=== PATIENT | female | born 1935 | race African-American/Black ===

== ENCOUNTER 2023-12-15 23:40 | Emergency (ER) | payer MEDICARE, OTHER ==
[~2023-12-15] VITALS: Ht 149.9 cm; Wt 39.5 kg
[2023-12-16 00:08] VITALS: TEMP 97.3
[2023-12-16 01:14] LABS: BASOPHILS % (AUTO) 0.5 % (0.0-2.0); EOSINOPHILS # (AUTO) 0.1 K/uL (0.0-0.7); EOSINOPHILS % (AUTO) 1.4 % (0.0-6.0); HEMATOCRIT 25 % (33-45); HEMOGLOBIN 8.1 g/dL (11.5-14.8); LYMPHOCYTES # (AUTO) 0.8 K/uL (0.8-4.8); LYMPHOCYTES % (AUTO) 10.9 % (20.0-44.0); MEAN CORPUSCULAR HEMOGLOBIN 31 PG (26.0-33.0); MEAN CORPUSCULAR HGB CONC 33 g/dl (31.0-36.0); MEAN CORPUSCULAR VOLUME 94 fL (82-100); MONOCYTES # (AUTO) 0.5 K/uL (0.1-1.30); MONOCYTES % (AUTO) 6.6 % (2.0-12.0); NEUTROPHILS # (AUTO) 5.6 K/uL (1.8-8.9); NEUTROPHILS % (AUTO) 80.6 % (43.0-81.0); PLATELET COUNT (AUTO) 241 K/uL (150-450); RED BLOOD CELL COUNT(AUTO) 2.65 MIL/uL (4.0-5.2); RED CELL DISTRIBUTION WIDTH 15.5 % (11.5-15.0)
[2023-12-16 01:22] LABS: CALCIUM, SERUM 8.7 mg/dL (8.5-10.1); CREATININE 0.7 mg/dL (0.6-1.3); POTASSIUM 3.5 mmol/L (3.5-5.1)
[2023-12-16 01:35] LABS: LACTIC ACID 1.2 mmol/L (0.4-2.0)
[2023-12-16 01:36] LABS: BILIRUBIN,TOTAL 0.2 mg/dL (0.2-1.0)
[2023-12-16 07:41] VITALS: BP 118/82; O2SAT 98
== END 2023-12-16 07:42 ==
LOC: EDBD 23:43 → ER 23:43
DX: S80.01XA Contusion of right knee, initial encounter (principal); F03.90 Unspecified dementia, unspecified severity, without behavioral disturbance, psychotic disturbance, mood disturbance, and anxiety; I10 Essential (primary) hypertension; E11.9 Type 2 diabetes mellitus without complications; F41.9 Anxiety disorder, unspecified; F20.9 Schizophrenia, unspecified; F32.A Depression, unspecified; W05.0XXA Fall from non-moving wheelchair, initial encounter; Y93.89 Activity, other specified; Y92.89 Other specified places as the place of occurrence of the external cause; Y99.8 Other external cause status
CPT/HCPCS: 36415; 73564-TC; 80053-TC; 83605-TC; 83880; 84484-TC; 85025-TC

== ENCOUNTER 2024-10-05 20:52 | Inpatient (IN) | payer MEDICARE, OTHER ==
[~2024-10-05] VITALS: Ht 154.9 cm; Wt 49.0 kg
[~2024-10-05 20:52] MED LIST: IVER3TAB2 PO
[2024-10-05 21:52] LABS: BASOPHILS # (AUTO) 0.1 K/uL (0.0-0.2); BASOPHILS % (AUTO) 1.1 % (0.0-2.0); EOSINOPHILS # (AUTO) 0.1 K/uL (0.0-0.7); EOSINOPHILS % (AUTO) 1.9 % (0.0-6.0); LYMPHOCYTES # (AUTO) 1.7 K/uL (0.8-4.8); MEAN CORPUSCULAR HEMOGLOBIN 30 PG (26.0-33.0); MEAN CORPUSCULAR HGB CONC 33 g/dl (31.0-36.0); MEAN CORPUSCULAR VOLUME 91 fL (82-100); MONOCYTES # (AUTO) 0.9 K/uL (0.1-1.30); MONOCYTES % (AUTO) 12.4 % (2.0-12.0); NEUTROPHILS # (AUTO) 4.6 K/uL (1.8-8.9); NEUTROPHILS % (AUTO) 61.6 % (43.0-81.0); PLATELET COUNT (AUTO) 355 K/uL (150-450); RED BLOOD CELL COUNT(AUTO) 2.08 MIL/uL (4.0-5.2); RED CELL DISTRIBUTION WIDTH 15.4 % (11.5-15.0); WHITE BLOOD COUNT (AUTO) 7.5 K/uL (4.3-11.0)
[2024-10-05 22:01] LABS: CALCIUM, SERUM 7.7 mg/dL (8.5-10.1); CARBON DIOXIDE 31 mmol/L (21-32); CHLORIDE 105 mmol/L (98-107); CREATININE 0.8 mg/dL (0.6-1.3); GLUCOSE 84 mg/dL (74-106); POTASSIUM 3.4 mmol/L (3.5-5.1); SODIUM SERUM 141 mmol/L (136-145); UREA NITROGEN, BLOOD 8 mg/dL (7-18)
[2024-10-05 22:03] LABS: HEMATOCRIT 19 % (33-45); HEMOGLOBIN 6.2 g/dL (11.5-14.8)
[2024-10-05 22:06] LABS: INR 1.13 (0.91-1.10); PARTIAL THROMBOPLASTIN TIME 25.6 SEC (24.3-34.3); PROTHROMBIN TIME 11.9 SECS (9.2-11.1)
[2024-10-05 22:08] LABS: ALANINE AMINOTRANSFERASE 11 U/L (12-78); ALBUMIN 1.7 g/dL (3.4-5.0); ALKALINE PHOSPHATASE 81 U/L (46-116); ASPARTATE AMINOTRANSFERASE 11 U/L (15-37); BILIRUBIN,DIRECT 0.1 mg/dL (0.0-0.2); BILIRUBIN,TOTAL 0.3 mg/dL (0.2-1.0); TOTAL PROTEIN, SERUM 6.4 g/dL (6.4-8.2)
[2024-10-05 22:26] LABS: BAND % (MANUAL) 1 % (0.0-5.0); EOSINOPHILS % (MANUAL) 2 % (0-4); LYMPHOCYTES % (MANUAL) 29 % (16-48); MONOCYTES % (MANUAL) 14 % (0-11.0); NEUTROPHILS % (MANUAL) 54 (42-76); PLATELET ESTIMATE ADEQUATE
[2024-10-05 22:27] LABS: ANISOCYTOSIS 1+; HYPOCHROMASIA 1+; STOMATOCYTES 1+
[2024-10-06] VITALS (8 sets, daily range): BP systolic 122–192; BP diastolic 61–83; TEMP 97.5–99; O2SAT 95–100
[2024-10-06] MEDS ORDERED: MAG HYDROX/AL HYDROX/SIMETH 30 ML UDC PO PRN
[2024-10-06] MEDS ORDERED: ONDANSETRON HCL/PF 4 MG/2 ML VIAL IVP PRN
[2024-10-06] MEDS ORDERED: Z GUARD REMEDY 4 OZ OINT TP PRN
[2024-10-06] MEDS ORDERED: MAGNESIUM HYDROXIDE 30 ML UDC PO PRN
[2024-10-06] MEDS: ACETAMINOPHEN 325 MG TABLET PO PRN (00:45)
[2024-10-06] MEDS: POTASSIUM CHLORIDE 20 MEQ TAB.PRT.SR PO ONE (00:46)
[2024-10-06] MEDS ORDERED: PANTOPRAZOLE 40 MG TABLET.DR PO SCH (07:30)
[2024-10-06] MEDS ORDERED: RISP0.5T5 PO (09:08)
[2024-10-06] MEDS ORDERED: CALC500T88 PO (09:08)
[2024-10-06] MEDS ORDERED: ATOR80TA PO (09:08)
[2024-10-06] MEDS ORDERED: ACET325T53 PO (09:08)
[2024-10-06] MEDS ORDERED: ACET-73 PO (09:08)
[2024-10-06] MEDS ORDERED: FAMO20TA8 PO (09:08)
[2024-10-06] MEDS ORDERED: DOCU100C36 PO (09:08)
[2024-10-06] MEDS ORDERED: ONDA4TAB5 PO (09:08)
[2024-10-06] MEDS ORDERED: FOLI0.8T3 PO (09:08)
[2024-10-06] MEDS ORDERED: GLUC1KIT IM (09:08)
[2024-10-06] MEDS ORDERED: AMLO-213 PO (09:08)
[2024-10-06] MEDS ORDERED: DEXT33GE7 PO (09:08)
[2024-10-06] MEDS ORDERED: CYAN100096 PO (09:08)
[2024-10-06] MEDS ORDERED: LOSA50TA39 PO (09:08)
[2024-10-06] MEDS ORDERED: FERR325T24 PO (09:08)
[2024-10-06] MEDS: PANTOPRAZOLE 40 MG VIAL IV SCH (10:21)
[2024-10-06 13:29] LABS: BASOPHILS # (AUTO) 0.1 K/uL (0.0-0.2); BASOPHILS % (AUTO) 0.7 % (0.0-2.0); EOSINOPHILS # (AUTO) 0.1 K/uL (0.0-0.7); EOSINOPHILS % (AUTO) 1.3 % (0.0-6.0); HEMATOCRIT 24 % (33-45); HEMOGLOBIN 8.1 g/dL (11.5-14.8); LYMPHOCYTES # (AUTO) 1.2 K/uL (0.8-4.8); LYMPHOCYTES % (AUTO) 14.1 % (20.0-44.0); MEAN CORPUSCULAR HEMOGLOBIN 30 PG (26.0-33.0); MEAN CORPUSCULAR HGB CONC 33 g/dl (31.0-36.0); MEAN CORPUSCULAR VOLUME 90 fL (82-100); MONOCYTES # (AUTO) 0.8 K/uL (0.1-1.30); MONOCYTES % (AUTO) 9.4 % (2.0-12.0); NEUTROPHILS # (AUTO) 6.2 K/uL (1.8-8.9); NEUTROPHILS % (AUTO) 74.5 % (43.0-81.0); PLATELET COUNT (AUTO) 332 K/uL (150-450); RED BLOOD CELL COUNT(AUTO) 2.72 MIL/uL (4.0-5.2); RED CELL DISTRIBUTION WIDTH 15.1 % (11.5-15.0); WHITE BLOOD COUNT (AUTO) 8.2 K/uL (4.3-11.0)
[2024-10-06] MEDS ORDERED: [UNRECOGNIZED DRUG - OTHER] PO PRN (15:00)
[2024-10-06] MEDS ORDERED: Medication Not On Formulary EA (Glucagon,Human Recombinant (Glucagon Emergency Kit) 1 MG IM PRN (15:00)
[2024-10-06] MEDS ORDERED: DEXTROSE PO PRN (15:00)
[2024-10-06] MEDS: risperiDONE 0.25 MG TABLET PO SCH (16:20)
[2024-10-06] MEDS: DOCUSATE SODIUM 100 MG CAPSULE PO SCH (16:20)
[2024-10-06 16:50] LABS: ALANINE AMINOTRANSFERASE 8 U/L (12-78); ALBUMIN 1.7 g/dL (3.4-5.0); ALKALINE PHOSPHATASE 92 U/L (46-116); ASPARTATE AMINOTRANSFERASE 9 U/L (15-37); BILIRUBIN,DIRECT 0.1 mg/dL (0.0-0.2); BILIRUBIN,TOTAL 0.3 mg/dL (0.2-1.0); CALCIUM, SERUM 7.8 mg/dL (8.5-10.1); CARBON DIOXIDE 28 mmol/L (21-32); CHLORIDE 103 mmol/L (98-107); CREATININE 0.7 mg/dL (0.6-1.3); GLUCOSE 151 mg/dL (74-106); MAGNESIUM 1.7 mg/dL (1.8-2.4); PHOSPHORUS 2.5 mg/dL (2.5-4.9); POTASSIUM 3.2 mmol/L (3.5-5.1); SODIUM SERUM 139 mmol/L (136-145); TOTAL PROTEIN, SERUM 6.7 g/dL (6.4-8.2); UREA NITROGEN, BLOOD 8 mg/dL (7-18)
[2024-10-06] MEDS: LOSARTAN POTASSIUM 50 MG TABLET PO SCH (17:39)
[2024-10-06] MEDS: ATORVASTATIN 40 MG TABLET PO SCH (21:56)
[2024-10-07 03:42] VITALS: BP 160/75; TEMP 98.1; O2SAT 98
[2024-10-07 07:18] LABS: BASOPHILS # (AUTO) 0.1 K/uL (0.0-0.2); BASOPHILS % (AUTO) 0.6 % (0.0-2.0); EOSINOPHILS # (AUTO) 0.2 K/uL (0.0-0.7); EOSINOPHILS % (AUTO) 1.9 % (0.0-6.0); HEMATOCRIT 26 % (33-45); HEMOGLOBIN 8.6 g/dL (11.5-14.8); LYMPHOCYTES # (AUTO) 1.6 K/uL (0.8-4.8); LYMPHOCYTES % (AUTO) 17.7 % (20.0-44.0); MEAN CORPUSCULAR HEMOGLOBIN 30 PG (26.0-33.0); MEAN CORPUSCULAR HGB CONC 33 g/dl (31.0-36.0); MEAN CORPUSCULAR VOLUME 90 fL (82-100); MONOCYTES % (AUTO) 11.5 % (2.0-12.0); NEUTROPHILS % (AUTO) 68.3 % (43.0-81.0); PLATELET COUNT (AUTO) 380 K/uL (150-450); RED BLOOD CELL COUNT(AUTO) 2.88 MIL/uL (4.0-5.2); RED CELL DISTRIBUTION WIDTH 15.2 % (11.5-15.0); WHITE BLOOD COUNT (AUTO) 8.8 K/uL (4.3-11.0)
[2024-10-07 07:21] LABS: APPEARANCE,URINE CLEAR (CLEAR); BILIRUBIN,URINE NEGATIVE (NEGATIVE); BLOOD, URINE 2+ Ery/uL (NEGATIVE); COLOR,URINE YELLOW (YELLOW); KETONES,URINE NEGATIVE (NEGATIVE); LEUKOCYTE ESTERASE ,URINE 3+ (NEGATIVE); NITRITE, URINE NEGATIVE (NEGATIVE); PH,URINE 7.5 (5.0-8.0); PROTEIN,URINE 1+ mg/dl (NEGATIVE); UGLUCOSE NEGATIVE (NEGATIVE)
[2024-10-07 07:35] LABS: CALCIUM, SERUM 8.1 mg/dL (8.5-10.1); CARBON DIOXIDE 28 mmol/L (21-32); CHLORIDE 104 mmol/L (98-107); GLUCOSE 119 mg/dL (74-106); POTASSIUM 3.2 mmol/L (3.5-5.1); SODIUM SERUM 137 mmol/L (136-145); UREA NITROGEN, BLOOD 9 mg/dL (7-18)
[2024-10-07 08:37] LABS: ADD URINE CULTURE YES; BACTERIA,URINE Moderate /HPF (None Seen); WBC,URINE 21-50 /HPF (0-3)
[2024-10-07 08:39] LABS: CALCIUM OXALATE CRYSTALS,UR Few /HPF (None Seen); RBC,URINE 0-2 /HPF (0-2); SQUAMOUS EPITHELIAL CELL,UR Rare /HPF (None Seen)
[2024-10-07] MEDS: CALCIUM CARBONATE (1250) 500 MG TABLET PO SCH (09:08)
[2024-10-07] MEDS: FERROUS SULFATE (325 MG) 325 MG/TAB TABLET PO SCH (09:08)
[2024-10-07] MEDS: FOLIC ACID 1 MG TABLET PO SCH (09:08)
[2024-10-07] MEDS: CYANOCOBALAMIN 500 MCG TABLET PO SCH (09:09)
[2024-10-07] MEDS: AMLODIPINE BESYLATE 10 MG TABLET PO SCH (09:09)
[2024-10-07] MEDS: PANTOPRAZOLE 40 MG TABLET.DR PO SCH (09:12)
[2024-10-07] MEDS: CEFTRIAXONE 1 G in IV D5W 50 ML IV SCH (10:30)
[2024-10-07] MEDS: POTASSIUM CHLORIDE 20 MEQ TAB.PRT.SR PO SCH (12:16)
[2024-10-07 16:00] VITALS: BP 142/68; TEMP 99.1; O2SAT 96
[2024-10-07 20:00] VITALS: BP 126/64; TEMP 99.2; O2SAT 96
[2024-10-08] VITALS: BP 121/64; TEMP 98.7; O2SAT 98
[2024-10-08 07:59] LABS: BASOPHILS % (AUTO) 0.6 % (0.0-2.0); EOSINOPHILS # (AUTO) 0.1 K/uL (0.0-0.7); HEMATOCRIT 28 % (33-45); HEMOGLOBIN 8.3 g/dL (11.5-14.8); LYMPHOCYTES # (AUTO) 1.1 K/uL (0.8-4.8); LYMPHOCYTES % (AUTO) 18.1 % (20.0-44.0); MEAN CORPUSCULAR HEMOGLOBIN 30 PG (26.0-33.0); MEAN CORPUSCULAR HGB CONC 30 g/dl (31.0-36.0); MEAN CORPUSCULAR VOLUME 100 fL (82-100); MONOCYTES # (AUTO) 0.7 K/uL (0.1-1.30); MONOCYTES % (AUTO) 10.6 % (2.0-12.0); NEUTROPHILS # (AUTO) 4.4 K/uL (1.8-8.9); NEUTROPHILS % (AUTO) 68.7 % (43.0-81.0); PLATELET COUNT (AUTO) 313 K/uL (150-450); RED BLOOD CELL COUNT(AUTO) 2.76 MIL/uL (4.0-5.2); RED CELL DISTRIBUTION WIDTH 16.3 % (11.5-15.0); WHITE BLOOD COUNT (AUTO) 6.3 K/uL (4.3-11.0)
[2024-10-08 08:00] VITALS: BP 170/82; TEMP 98.2; O2SAT 99
[2024-10-08 08:02] LABS: CALCIUM, SERUM 8.3 mg/dL (8.5-10.1); CARBON DIOXIDE 25 mmol/L (21-32); CHLORIDE 108 mmol/L (98-107); CREATININE 0.8 mg/dL (0.6-1.3); GLUCOSE 80 mg/dL (74-106); SODIUM SERUM 140 mmol/L (136-145); UREA NITROGEN, BLOOD 7 mg/dL (7-18)
[2024-10-08] MEDS ORDERED: POTASSIUM CHLORIDE 20 MEQ POWDER PACKET PO SCH ×2 (09:00)
[2024-10-08 09:59] VITALS: BP 170/82
[2024-10-08] MEDS ORDERED: CEFP200T14 PO (10:03)
[2024-10-08] MEDS ORDERED: PANT40TA2 PO (10:03)
== END 2024-10-08 16:07 | DRG 811 ==
LOC: ER 20:56 → TELE1 23:09 → MEDSG1 10-07 10:50 → UNDODISIN 10-08 11:23
PROVIDERS: ADMIT Nurse Practitioner Family
PROC: 30233N1 Transfusion of Nonautologous Red Blood Cells into Peripheral Vein, Percutaneous Approach (ICD-10-PCS; principal; 2024-10-05)
DX: D50.9 Iron deficiency anemia, unspecified (principal); E43 Unspecified severe protein-calorie malnutrition; M48.56XA Collapsed vertebra, not elsewhere classified, lumbar region, initial encounter for fracture; N39.0 Urinary tract infection, site not specified; F01.54 Vascular dementia, unspecified severity, with anxiety; F01.518 Vascular dementia, unspecified severity, with other behavioral disturbance; F01.52 Vascular dementia, unspecified severity, with psychotic disturbance; E88.09 Other disorders of plasma-protein metabolism, not elsewhere classified; I10 Essential (primary) hypertension; I25.10 Atherosclerotic heart disease of native coronary artery without angina pectoris; E87.6 Hypokalemia; F41.9 Anxiety disorder, unspecified; Z86.73 Personal history of transient ischemic attack (TIA), and cerebral infarction without residual deficits; M19.90 Unspecified osteoarthritis, unspecified site; Z79.899 Other long term (current) drug therapy; Z86.718 Personal history of other venous thrombosis and embolism; E11.9 Type 2 diabetes mellitus without complications
CPT/HCPCS: 36415; 71045-TC; 80048-TC; 80076-TC; 81001; 83690-TC; 83735-TC; 84100-TC; 84484-TC; 85025-TC; 85730-TC; 86850-TC; 87086-TC; A4223; G0378; J0696; J2470; J7050; J7060; P9016

== ENCOUNTER 2025-03-30 18:13 | Inpatient (IN) | payer MEDICARE, OTHER ==
[~2025-03-30] VITALS: Ht 152.4 cm; Wt 49.0 kg
[~2025-03-30 18:13] MED LIST changes: +ACET-73 PO; +ACET325T53 PO; +AMLO-213 PO; +ATOR80TA PO; +CALC500T88 PO; +CEFP200T14 PO; +CYAN100096 PO; +DEXT33GE7 PO; +DOCU100C36 PO; +FAMO20TA8 PO; +FERR325T24 PO; +FOLI0.8T3 PO; +GLUC1KIT IM; -IVER3TAB2 PO; +LOSA50TA39 PO; +ONDA4TAB5 PO; +PANT40TA2 PO; +RISP0.5T5 PO
[2025-03-30] MEDS ORDERED: CRAN300T PO (18:50)
[2025-03-30] MEDS ORDERED: ASCO500T10 PO (18:50)
[2025-03-30 19:01] LABS: BASOPHILS # (AUTO) 0.1 K/uL (0.0-0.2); BASOPHILS % (AUTO) 0.8 % (0.0-2.0); EOSINOPHILS # (AUTO) 0.3 K/uL (0.0-0.7); EOSINOPHILS % (AUTO) 3.4 % (0.0-6.0); HEMATOCRIT 27 % (33-45); HEMOGLOBIN 8.8 g/dL (11.5-14.8); LYMPHOCYTES # (AUTO) 2.7 K/uL (0.8-4.8); MEAN CORPUSCULAR HEMOGLOBIN 31 PG (26.0-33.0); MEAN CORPUSCULAR HGB CONC 33 g/dl (31.0-36.0); MEAN CORPUSCULAR VOLUME 94 fL (82-100); MONOCYTES # (AUTO) 0.8 K/uL (0.1-1.30); MONOCYTES % (AUTO) 8.7 % (2.0-12.0); NEUTROPHILS # (AUTO) 5.7 K/uL (1.8-8.9); NEUTROPHILS % (AUTO) 59.1 % (43.0-81.0); PLATELET COUNT (AUTO) 356 K/uL (150-450); RED BLOOD CELL COUNT(AUTO) 2.87 MIL/uL (4.0-5.2); RED CELL DISTRIBUTION WIDTH 14.9 % (11.5-15.0); WHITE BLOOD COUNT (AUTO) 9.6 K/uL (4.3-11.0)
[2025-03-30 19:13] LABS: CALCIUM, SERUM 9.1 mg/dL (8.5-10.1); CARBON DIOXIDE 28 mmol/L (21-32); CHLORIDE 105 mmol/L (98-107); CREATININE 0.9 mg/dL (0.6-1.3); GLUCOSE 82 mg/dL (74-106); POTASSIUM 4.1 mmol/L (3.5-5.1); SODIUM SERUM 140 mmol/L (136-145); UREA NITROGEN, BLOOD 18 mg/dL (7-18)
[2025-03-30 19:19] LABS: ALANINE AMINOTRANSFERASE 15 U/L (12-78); ALBUMIN 2.3 g/dL (3.4-5.0); ALCOHOL, BLOOD < 3 mg/dL (0-10); ALKALINE PHOSPHATASE 130 U/L (46-116); ASPARTATE AMINOTRANSFERASE 20 U/L (15-37); BILIRUBIN,DIRECT 0.1 mg/dL (0.0-0.2); BILIRUBIN,TOTAL 0.2 mg/dL (0.2-1.0); TOTAL PROTEIN, SERUM 7.4 g/dL (6.4-8.2)
[2025-03-30 19:20] LABS: ACETAMINOPHEN <10 ug/ml (10-30); SALICYLATE 1.4 mg/dL (2.8-20.0)
[2025-03-30] MEDS: HALOPERIDOL LACTATE INJ 5 MG/ML VIAL IM ONE (19:30)
[2025-03-30] MEDS ORDERED: HALOPERIDOL LACTATE INJ 5 MG/ML VIAL ONE (19:39)
[2025-03-30] MEDS ORDERED: LORAZEPAM INJ 2 MG/ML VIAL ONE (20:27)
[2025-03-30] MEDS: LORAZEPAM INJ 2 MG/ML VIAL IM ONE (20:30)
[2025-03-30 20:51] LABS: AMPHETAMINE, URINE NEGATIVE (NEGATIVE); BARBITURATE, URINE NEGATIVE (NEGATIVE); BENZODIAZEPINE, URINE NEGATIVE (NEGATIVE); CANNABINOID, URINE NEGATIVE (NEGATIVE); COCCAINE, URINE NEGATIVE (NEGATIVE); OPIATE, URINE NEGATIVE (NEGATIVE); PHENCYCLIDINE SCREEN,URINE NEGATIVE (NEGATIVE)
[2025-03-30 21:07] LABS: APPEARANCE,URINE CLOUDY (CLEAR); BILIRUBIN,URINE NEGATIVE (NEGATIVE); BLOOD, URINE 2+ Ery/uL (NEGATIVE); KETONES,URINE TRACE mg/dL (NEGATIVE); LEUKOCYTE ESTERASE ,URINE 1+ (NEGATIVE); NITRITE, URINE NEGATIVE (NEGATIVE); PROTEIN,URINE 2+ mg/dl (NEGATIVE); UGLUCOSE NEGATIVE (NEGATIVE)
[2025-03-30 21:09] LABS: COLOR,URINE AMBER (YELLOW)
[2025-03-30 21:22] LABS: ADD URINE CULTURE YES; BACTERIA,URINE Moderate /HPF (None Seen); RBC,URINE 51-80 /HPF (0-2); WBC,URINE 21-50 /HPF (0-3)
[2025-03-31] MEDS ORDERED: CEPHALEXIN MONOHYDRATE 500 MG CAPSULE PO ONE (00:28)
[2025-03-31] MEDS: CEPHALEXIN MONOHYDRATE 500 MG CAPSULE PO ONE (00:40)
[2025-03-31] MEDS ORDERED: MAGNESIUM HYDROXIDE 30 ML UDC PO PRN (01:00)
[2025-03-31] MEDS ORDERED: TEMAZEPAM 7.5 MG CAPSULE PO PRN (01:00)
[2025-03-31] MEDS: BLOOD SUGAR DIAGNOSTIC 1 EACH STRIP IN ONE (01:32)
[2025-03-31 01:48] VITALS: BP 107/52; TEMP 98.8; O2SAT 97
[2025-03-31 08:00] VITALS: BP 116/54; TEMP 98.7; O2SAT 100
[2025-03-31] MEDS ORDERED: ACETAMINOPHEN ES 500 MG TABLET PO PRN (11:30)
[2025-03-31] MEDS ORDERED: ACETAMINOPHEN 325 MG TABLET PO PRN (11:30)
[2025-03-31] MEDS ORDERED: ONDANSETRON 4 MG TAB.RAPDIS PO PRN (12:00)
[2025-03-31] MEDS: ACETAMINOPHEN 325 MG TABLET PO PRN (12:15)
[2025-03-31] MEDS: LORAZEPAM 0.5 MG TABLET PO PRN (12:21)
[2025-03-31] MEDS: risperiDONE 1 MG TABLET PO SCH (12:55)
[2025-03-31] MEDS: CEPHALEXIN MONOHYDRATE 500 MG CAPSULE PO SCH (12:55)
[2025-03-31 16:00] VITALS: BP 109/84; TEMP 98.2; O2SAT 100
[2025-03-31] MEDS: DOCUSATE SODIUM 100 MG CAPSULE PO SCH (16:19)
[2025-03-31 20:27] VITALS: BP 108/64; TEMP 98.4; O2SAT 100
[2025-03-31] MEDS: ATORVASTATIN 40 MG TABLET PO SCH (21:20)
[2025-04-01 08:00] VITALS: BP 136/90; TEMP 97.9; O2SAT 98
[2025-04-01 08:11] LABS: CREATININE 1.1 mg/dL (0.6-1.3)
[2025-04-01 08:18] LABS: ALANINE AMINOTRANSFERASE 18 U/L (12-78); ALBUMIN 2.2 g/dL (3.4-5.0); ALKALINE PHOSPHATASE 128 U/L (46-116); ASPARTATE AMINOTRANSFERASE 21 U/L (15-37); BILIRUBIN,TOTAL 0.2 mg/dL (0.2-1.0); CALCIUM, SERUM 8.8 mg/dL (8.5-10.1); CARBON DIOXIDE 28 mmol/L (21-32); CHLORIDE 104 mmol/L (98-107); CREATININE 1.1 mg/dL (0.6-1.3); GLUCOSE 87 mg/dL (74-106); POTASSIUM 4.1 mmol/L (3.5-5.1); SODIUM SERUM 138 mmol/L (136-145); TOTAL PROTEIN, SERUM 7.1 g/dL (6.4-8.2); UREA NITROGEN, BLOOD 20 mg/dL (7-18)
[2025-04-01] MEDS: AMLODIPINE BESYLATE 10 MG TABLET PO SCH (08:43)
[2025-04-01] MEDS: LOSARTAN POTASSIUM 50 MG TABLET PO SCH (08:43)
[2025-04-01] MEDS: FERROUS SULFATE (325 MG) 325 MG/TAB TABLET PO SCH (08:43)
[2025-04-01] MEDS: CALCIUM CARBONATE (1250) 500 MG TABLET PO SCH (08:43)
[2025-04-01] MEDS: FAMOTIDINE (20 MG) 20 MG TABLET PO SCH (08:44)
[2025-04-01] MEDS: ASCORBIC ACID 500 MG TABLET PO SCH (08:44)
[2025-04-01] MEDS ORDERED: Medication Not On Formulary EA (Cranberry Extract (Cranberry) 450 MG) PO SCH (09:00)
[2025-04-01] MEDS: OLANZAPINE 10 MG VIAL IM ONE (11:08)
[2025-04-01 16:00] VITALS: BP 102/71; TEMP 98; O2SAT 96
[2025-04-01 21:15] VITALS: BP 102/70; TEMP 98.1; O2SAT 98
[2025-04-02 08:00] VITALS: BP 100/67; TEMP 97.6; O2SAT 96
[2025-04-02] MEDS: risperiDONE 1 MG TABLET PO SCH (08:16)
[2025-04-02 16:00] VITALS: BP 104/75; TEMP 97.8; O2SAT 97
[2025-04-02 22:46] LABS: THYROID STIMULATING HORMONE 1.211 uIU/mL (0.358-3.74)
[2025-04-03 08:00] VITALS: BP 106/67; TEMP 97.9; O2SAT 96
[2025-04-03] MEDS ORDERED: DEXTROSE 50%-WATER 50 ML DISP.SYRIN IV PRN (10:00)
[2025-04-03] MEDS: BLOOD SUGAR DIAGNOSTIC 1 EACH STRIP VI SCH (11:41)
[2025-04-03] MEDS: INSULIN REGULAR, HUMAN 100 UNIT/ML 3 ML VIAL SQ PRN (11:41)
[2025-04-03] MEDS ORDERED: Z GUARD REMEDY 4 OZ OINT TP PRN (13:00)
[2025-04-03 16:53] VITALS: BP 121/75; TEMP 98.1; O2SAT 92
[2025-04-03] MEDS: *INSULIN REGULAR(HUMULIN R)HUM 100 UNIT/ML VIAL SQ PRN (16:55)
[2025-04-03 20:27] VITALS: BP 105/56; TEMP 98; O2SAT 96
[2025-04-03] MEDS: Z GUARD REMEDY 4 OZ OINT TP SCH (22:19)
[2025-04-04 08:00] VITALS: BP 100/52; TEMP 98.7; O2SAT 95
[2025-04-04] MEDS: LORAZEPAM 0.5 MG TABLET PO PRN (10:57)
[2025-04-04 16:00] VITALS: BP 100/56; TEMP 98.7; O2SAT 99
[2025-04-04 20:10] VITALS: BP 123/68; TEMP 98; O2SAT 99
[2025-04-05 08:00] VITALS: BP 133/77; TEMP 97.7; O2SAT 99
[2025-04-05] MEDS: DIVALPROEX SODIUM 125 MG TABLET.DR PO SCH (13:01)
[2025-04-05 16:00] VITALS: BP 128/62; TEMP 97.9; O2SAT 98
[2025-04-05 20:38] VITALS: BP 96/52; TEMP 97.9; O2SAT 99
[2025-04-06 08:00] VITALS: BP 114/59; TEMP 98.1; O2SAT 97
[2025-04-06 08:07] LABS: ALBUMIN 1.9 g/dL (3.4-5.0); BILIRUBIN,TOTAL 0.1 mg/dL (0.2-1.0); CALCIUM, SERUM 8.5 mg/dL (8.5-10.1); CREATININE 0.9 mg/dL (0.6-1.3); POTASSIUM 4.9 mmol/L (3.5-5.1); TOTAL PROTEIN, SERUM 6.6 g/dL (6.4-8.2)
[2025-04-06] MEDS: DIVALPROEX SODIUM 125 MG CAP.SPRINK PO ONE (15:07)
[2025-04-06 16:00] VITALS: BP 127/59; TEMP 97.9; O2SAT 97
[2025-04-06] MEDS: DIVALPROEX SODIUM 125 MG CAP.SPRINK PO SCH (16:25)
[2025-04-06 20:08] VITALS: BP 115/69; TEMP 97.9; O2SAT 98
[2025-04-06] MEDS: MAG HYDROX/AL HYDROX/SIMETH 30 ML UDC PO PRN (20:09)
[2025-04-06] MEDS: TEMAZEPAM 7.5 MG CAPSULE PO PRN (21:13)
[2025-04-07 08:00] VITALS: BP 126/70; TEMP 98; O2SAT 98
[2025-04-07] MEDS ORDERED: RISPERIDONE 0.25 MG TAB.RAPDIS PO SCH (09:30)
[2025-04-07] MEDS: VALPROIC ACID 250 MG/5 ML UDC PO SCH (09:58)
[2025-04-07] MEDS: risperiDONE-M 0.5 MG TAB.RAPDIS PO SCH (12:53)
[2025-04-07 13:34] LABS: ALBUMIN 2.1 g/dL (3.4-5.0); BILIRUBIN,TOTAL 0.1 mg/dL (0.2-1.0); CALCIUM, SERUM 9.2 mg/dL (8.5-10.1); CREATININE 0.9 mg/dL (0.6-1.3); POTASSIUM 4.6 mmol/L (3.5-5.1); TOTAL PROTEIN, SERUM 7.1 g/dL (6.4-8.2)
[2025-04-07 13:37] LABS: BASOPHILS # (AUTO) 0.1 K/uL (0.0-0.2); BASOPHILS % (AUTO) 0.8 % (0.0-2.0); EOSINOPHILS # (AUTO) 0.2 K/uL (0.0-0.7); HEMATOCRIT 24 % (33-45); HEMOGLOBIN 7.9 g/dL (11.5-14.8); LYMPHOCYTES # (AUTO) 1.7 K/uL (0.8-4.8); LYMPHOCYTES % (AUTO) 18.9 % (20.0-44.0); MEAN CORPUSCULAR HEMOGLOBIN 31 PG (26.0-33.0); MEAN CORPUSCULAR HGB CONC 33 g/dl (31.0-36.0); MEAN CORPUSCULAR VOLUME 94 fL (82-100); MONOCYTES # (AUTO) 0.6 K/uL (0.1-1.30); MONOCYTES % (AUTO) 6.8 % (2.0-12.0); NEUTROPHILS # (AUTO) 6.6 K/uL (1.8-8.9); NEUTROPHILS % (AUTO) 71.5 % (43.0-81.0); PLATELET COUNT (AUTO) 309 K/uL (150-450); RED BLOOD CELL COUNT(AUTO) 2.53 MIL/uL (4.0-5.2); RED CELL DISTRIBUTION WIDTH 14.8 % (11.5-15.0); WHITE BLOOD COUNT (AUTO) 9.2 K/uL (4.3-11.0)
[2025-04-07 16:00] VITALS: BP 119/69; TEMP 97.4; O2SAT 97
[2025-04-07 20:00] VITALS: BP 123/59; TEMP 97.5; O2SAT 96
[2025-04-08 08:15] LABS: BASOPHILS # (AUTO) 0.1 K/uL (0.0-0.2); BASOPHILS % (AUTO) 0.6 % (0.0-2.0); EOSINOPHILS # (AUTO) 0.2 K/uL (0.0-0.7); EOSINOPHILS % (AUTO) 2.3 % (0.0-6.0); HEMATOCRIT 28 % (33-45); HEMOGLOBIN 8.7 g/dL (11.5-14.8); LYMPHOCYTES # (AUTO) 1.6 K/uL (0.8-4.8); LYMPHOCYTES % (AUTO) 15.5 % (20.0-44.0); MEAN CORPUSCULAR HEMOGLOBIN 31 PG (26.0-33.0); MEAN CORPUSCULAR HGB CONC 31 g/dl (31.0-36.0); MEAN CORPUSCULAR VOLUME 101 fL (82-100); MONOCYTES # (AUTO) 0.7 K/uL (0.1-1.30); MONOCYTES % (AUTO) 6.8 % (2.0-12.0); NEUTROPHILS % (AUTO) 74.8 % (43.0-81.0); PLATELET COUNT (AUTO) 287 K/uL (150-450); RED BLOOD CELL COUNT(AUTO) 2.81 MIL/uL (4.0-5.2); WHITE BLOOD COUNT (AUTO) 10.7 K/uL (4.3-11.0)
[2025-04-08 09:05] VITALS: BP 124/55; TEMP 97.5; O2SAT 100
[2025-04-08 16:39] VITALS: BP 110/48; TEMP 97.8; O2SAT 100
[2025-04-08 18:29] LABS: APPEARANCE,URINE SLIGHTLY CLOUDY (CLEAR); BILIRUBIN,URINE NEGATIVE (NEGATIVE); BLOOD, URINE 3+ Ery/uL (NEGATIVE); COLOR,URINE YELLOW (YELLOW); KETONES,URINE NEGATIVE (NEGATIVE); LEUKOCYTE ESTERASE ,URINE 1+ (NEGATIVE); NITRITE, URINE NEGATIVE (NEGATIVE); PROTEIN,URINE 1+ mg/dl (NEGATIVE); UGLUCOSE NEGATIVE (NEGATIVE); UROBILINOGEN,URINE 0.2 EU/dL (0.2)
[2025-04-08 19:16] LABS: ADD URINE CULTURE YES; BACTERIA,URINE 2+ /HPF (None Seen); MUCUS,URINE Few /LPF (None Seen); RBC,URINE 51-80 /HPF (0-2); SQUAMOUS EPITHELIAL CELL,UR 0-2 /HPF (None Seen)
[2025-04-08 20:19] VITALS: BP 105/69; TEMP 97.9; O2SAT 98
[2025-04-09 07:08] LABS: BASOPHILS % (AUTO) 0.5 % (0.0-2.0); EOSINOPHILS # (AUTO) 0.2 K/uL (0.0-0.7); EOSINOPHILS % (AUTO) 2.6 % (0.0-6.0); HEMATOCRIT 24 % (33-45); HEMOGLOBIN 7.8 g/dL (11.5-14.8); LYMPHOCYTES # (AUTO) 1.7 K/uL (0.8-4.8); LYMPHOCYTES % (AUTO) 19.6 % (20.0-44.0); MEAN CORPUSCULAR HEMOGLOBIN 31 PG (26.0-33.0); MEAN CORPUSCULAR HGB CONC 32 g/dl (31.0-36.0); MEAN CORPUSCULAR VOLUME 95 fL (82-100); MONOCYTES # (AUTO) 0.7 K/uL (0.1-1.30); NEUTROPHILS % (AUTO) 69.3 % (43.0-81.0); PLATELET COUNT (AUTO) 306 K/uL (150-450); RED BLOOD CELL COUNT(AUTO) 2.54 MIL/uL (4.0-5.2); RED CELL DISTRIBUTION WIDTH 15.6 % (11.5-15.0); WHITE BLOOD COUNT (AUTO) 8.7 K/uL (4.3-11.0)
[2025-04-09] MEDS: FERROUS SULFATE (325 MG) 325 MG/TAB TABLET PO SCH (16:53)
[2025-04-09] MEDS: GLUCERNA SHAKE 237 ML CAN PO SCH (17:00)
[2025-04-09 20:52] VITALS: BP 110/54; TEMP 98; O2SAT 97
[2025-04-10 06:43] LABS: BASOPHILS % (AUTO) 0.5 % (0.0-2.0); EOSINOPHILS # (AUTO) 0.2 K/uL (0.0-0.7); EOSINOPHILS % (AUTO) 2.6 % (0.0-6.0); HEMATOCRIT 22 % (33-45); HEMOGLOBIN 7.4 g/dL (11.5-14.8); LYMPHOCYTES % (AUTO) 21.8 % (20.0-44.0); MEAN CORPUSCULAR HEMOGLOBIN 31 PG (26.0-33.0); MEAN CORPUSCULAR HGB CONC 34 g/dl (31.0-36.0); MEAN CORPUSCULAR VOLUME 93 fL (82-100); MONOCYTES # (AUTO) 0.7 K/uL (0.1-1.30); MONOCYTES % (AUTO) 7.8 % (2.0-12.0); NEUTROPHILS # (AUTO) 6.1 K/uL (1.8-8.9); NEUTROPHILS % (AUTO) 67.3 % (43.0-81.0); PLATELET COUNT (AUTO) 314 K/uL (150-450); RED BLOOD CELL COUNT(AUTO) 2.35 MIL/uL (4.0-5.2); RED CELL DISTRIBUTION WIDTH 15.1 % (11.5-15.0)
[2025-04-10 08:00] VITALS: BP 104/68; TEMP 98.2; O2SAT 96
[2025-04-10 16:00] VITALS: BP 100/55; TEMP 98.8; O2SAT 99
[2025-04-10] MEDS: DIVALPROEX SODIUM 125 MG CAP.SPRINK PO SCH (16:52)
[2025-04-10 21:45] VITALS: BP 101/51; TEMP 98.7; O2SAT 99
[2025-04-11 08:00] VITALS: BP 116/56; TEMP 97.8; O2SAT 98
[2025-04-11 15:55] VITALS: BP 105/53; TEMP 98.6
[2025-04-11] MEDS: MEGESTROL ACETATE 40 MG TABLET PO SCH (16:54)
[2025-04-11 20:37] VITALS: BP 131/62; TEMP 98.3; O2SAT 98
[2025-04-12 08:00] VITALS: BP 108/90; TEMP 98; O2SAT 96
[2025-04-12 16:04] VITALS: BP 92/52; TEMP 98; O2SAT 98
[2025-04-12 21:03] VITALS: BP 105/48; TEMP 97.9; O2SAT 96
[2025-04-13 07:44] LABS: BASOPHILS # (AUTO) 0.1 K/uL (0.0-0.2); BASOPHILS % (AUTO) 0.5 % (0.0-2.0); EOSINOPHILS # (AUTO) 0.2 K/uL (0.0-0.7); EOSINOPHILS % (AUTO) 2.1 % (0.0-6.0); HEMATOCRIT 22 % (33-45); HEMOGLOBIN 7.2 g/dL (11.5-14.8); LYMPHOCYTES # (AUTO) 1.6 K/uL (0.8-4.8); LYMPHOCYTES % (AUTO) 15.8 % (20.0-44.0); MEAN CORPUSCULAR HEMOGLOBIN 31 PG (26.0-33.0); MEAN CORPUSCULAR HGB CONC 33 g/dl (31.0-36.0); MEAN CORPUSCULAR VOLUME 94 fL (82-100); MONOCYTES # (AUTO) 0.8 K/uL (0.1-1.30); MONOCYTES % (AUTO) 7.9 % (2.0-12.0); NEUTROPHILS # (AUTO) 7.4 K/uL (1.8-8.9); NEUTROPHILS % (AUTO) 73.7 % (43.0-81.0); PLATELET COUNT (AUTO) 314 K/uL (150-450); RED CELL DISTRIBUTION WIDTH 14.8 % (11.5-15.0)
[2025-04-13 08:00] VITALS: BP 114/63; TEMP 98.7; O2SAT 98
[2025-04-13 15:52] VITALS: BP 93/50; TEMP 98.7; O2SAT 100
[2025-04-13 19:59] LABS: APPEARANCE,URINE TURBID (CLEAR); BILIRUBIN,URINE NEGATIVE (NEGATIVE); BLOOD, URINE 3+ Ery/uL (NEGATIVE); COLOR,URINE YELLOW (YELLOW); KETONES,URINE TRACE mg/dL (NEGATIVE); LEUKOCYTE ESTERASE ,URINE 1+ (NEGATIVE); NITRITE, URINE NEGATIVE (NEGATIVE); PROTEIN,URINE 2+ mg/dl (NEGATIVE); UGLUCOSE NEGATIVE (NEGATIVE)
[2025-04-13 20:25] LABS: RBC,URINE TOO NUMEROUS TO COUN /HPF (0-2)
[2025-04-13 20:26] LABS: ADD URINE CULTURE YES; BACTERIA,URINE Moderate /HPF (None Seen)
[2025-04-13 20:50] VITALS: BP 113/52; TEMP 98.5; O2SAT 98
[2025-04-13 21:06] VITALS: BP 113/52; TEMP 98.5; O2SAT 100
[2025-04-14 07:44] LABS: BASOPHILS # (AUTO) 0.1 K/uL (0.0-0.2); BASOPHILS % (AUTO) 0.5 % (0.0-2.0); EOSINOPHILS # (AUTO) 0.2 K/uL (0.0-0.7); EOSINOPHILS % (AUTO) 2.1 % (0.0-6.0); HEMATOCRIT 25 % (33-45); HEMOGLOBIN 7.9 g/dL (11.5-14.8); LYMPHOCYTES # (AUTO) 1.6 K/uL (0.8-4.8); LYMPHOCYTES % (AUTO) 14.7 % (20.0-44.0); MEAN CORPUSCULAR HEMOGLOBIN 31 PG (26.0-33.0); MEAN CORPUSCULAR HGB CONC 32 g/dl (31.0-36.0); MEAN CORPUSCULAR VOLUME 96 fL (82-100); MONOCYTES # (AUTO) 0.6 K/uL (0.1-1.30); MONOCYTES % (AUTO) 5.4 % (2.0-12.0); NEUTROPHILS # (AUTO) 8.2 K/uL (1.8-8.9); NEUTROPHILS % (AUTO) 77.3 % (43.0-81.0); PLATELET COUNT (AUTO) 329 K/uL (150-450); RED BLOOD CELL COUNT(AUTO) 2.58 MIL/uL (4.0-5.2); RED CELL DISTRIBUTION WIDTH 15.3 % (11.5-15.0); WHITE BLOOD COUNT (AUTO) 10.6 K/uL (4.3-11.0)
[2025-04-14 08:00] VITALS: BP 126/69; TEMP 98; O2SAT 98
[2025-04-14 09:55] VITALS: BP 126/69
== END 2025-04-14 13:10 | DRG 885 ==
LOC: ER 18:18 → GPS 23:27
PROVIDERS: ADMIT Nurse Practitioner Psychiatric/Mental Health; ATTEND Internal Medicine
DX: F20.9 Schizophrenia, unspecified (principal); R45.1 Restlessness and agitation; F03.92 Unspecified dementia, unspecified severity, with psychotic disturbance; F03.918 Unspecified dementia, unspecified severity, with other behavioral disturbance; F03.911 Unspecified dementia, unspecified severity, with agitation; N39.0 Urinary tract infection, site not specified; F03.94 Unspecified dementia, unspecified severity, with anxiety; F03.93 Unspecified dementia, unspecified severity, with mood disturbance; E44.0 Moderate protein-calorie malnutrition; G93.49 Other encephalopathy; F29 Unspecified psychosis not due to a substance or known physiological condition; E11.9 Type 2 diabetes mellitus without complications; I10 Essential (primary) hypertension; Z79.899 Other long term (current) drug therapy; Z86.73 Personal history of transient ischemic attack (TIA), and cerebral infarction without residual deficits; I25.10 Atherosclerotic heart disease of native coronary artery without angina pectoris; Z91.148 Patient's other noncompliance with medication regimen for other reason; M19.90 Unspecified osteoarthritis, unspecified site; B96.89 Other specified bacterial agents as the cause of diseases classified elsewhere; D64.9 Anemia, unspecified; F41.9 Anxiety disorder, unspecified; E88.09 Other disorders of plasma-protein metabolism, not elsewhere classified; Z87.81 Personal history of (healed) traumatic fracture; Z73.6 Limitation of activities due to disability
CPT/HCPCS: 36415; 71045-TC; 80048-TC; 80053-TC; 80061-TC; 80076-TC; 80164-TC; 81001; 82565-TC; 82962-TC; 84443-TC; 85025-TC; 87081-TC; 87086-TC; 97110-TC; 97530-TC; 98960; G0480; J1630; J1815; J2060; J3490

== ENCOUNTER 2025-04-22 21:41 | Inpatient (IN) | payer MEDICARE ==
[~2025-04-22] VITALS: Ht 154.9 cm; Wt 41.9 kg
[~2025-04-22 21:41] MED LIST changes: +ASCO500T10 PO; -CEFP200T14 PO; +CRAN300T PO; -CYAN100096 PO; -DEXT33GE7 PO; -FOLI0.8T3 PO; -GLUC1KIT IM; -PANT40TA2 PO; -RISP0.5T5 PO
[2025-04-22 22:43] LABS: CALCIUM, SERUM 8.3 mg/dL (8.5-10.1)
[2025-04-22 22:46] LABS: BASOPHILS # (AUTO) 0.1 K/uL (0.0-0.2); BASOPHILS % (AUTO) 0.8 % (0.0-2.0); EOSINOPHILS # (AUTO) 0.3 K/uL (0.0-0.7); EOSINOPHILS % (AUTO) 2.7 % (0.0-6.0); LYMPHOCYTES # (AUTO) 2.2 K/uL (0.8-4.8); MEAN CORPUSCULAR HEMOGLOBIN 30 PG (26.0-33.0); MEAN CORPUSCULAR HGB CONC 33 g/dl (31.0-36.0); MEAN CORPUSCULAR VOLUME 93 fL (82-100); MONOCYTES # (AUTO) 0.7 K/uL (0.1-1.30); NEUTROPHILS # (AUTO) 5.9 K/uL (1.8-8.9); NEUTROPHILS % (AUTO) 64.5 % (43.0-81.0); PLATELET COUNT (AUTO) 343 K/uL (150-450); RED BLOOD CELL COUNT(AUTO) 2.05 MIL/uL (4.0-5.2); RED CELL DISTRIBUTION WIDTH 15.1 % (11.5-15.0); WHITE BLOOD COUNT (AUTO) 9.2 K/uL (4.3-11.0)
[2025-04-22 22:48] LABS: TOTAL PROTEIN, SERUM 6.7 g/dL (6.4-8.2)
[2025-04-22 22:50] LABS: HEMATOCRIT 19 % (33-45); HEMOGLOBIN 6.2 g/dL (11.5-14.8)
[2025-04-22 22:51] LABS: INR 1.02 (0.91-1.10); PARTIAL THROMBOPLASTIN TIME 25.2 SEC (24.3-34.3); PROTHROMBIN TIME 10.8 SECS (9.2-11.1)
[2025-04-22 23:08] LABS: BILIRUBIN,TOTAL 0.1 mg/dL (0.2-1.0)
[2025-04-23 00:54] LABS: IRON, SERUM 27 ug/dl (50-175); TOTAL IRON BINDING CAPACITY 152 ug/dl (250-450)
[2025-04-23] MEDS ORDERED: ACETAMINOPHEN 325 MG TABLET PO PRN (01:00)
[2025-04-23] MEDS ORDERED: MAG HYDROX/AL HYDROX/SIMETH 30 ML UDC PO PRN (01:00)
[2025-04-23] MEDS ORDERED: ONDANSETRON HCL/PF 4 MG/2 ML VIAL IVP PRN (01:00)
[2025-04-23] MEDS ORDERED: Z GUARD REMEDY 4 OZ OINT TP PRN (01:00)
[2025-04-23 01:09] LABS: FERRITIN 288 ng/mL (8-388)
[2025-04-23 01:15] LABS: EOSINOPHILS % (MANUAL) 5 % (0-4); LYMPHOCYTES % (MANUAL) 24 % (16-48); MONOCYTES % (MANUAL) 6 % (0-11.0); NEUTROPHILS % (MANUAL) 65 (42-76); PLATELET ESTIMATE ADEQUATE
[2025-04-23 01:16] LABS: ANISOCYTOSIS 1+
[2025-04-23 03:40] VITALS: BP 129/69; TEMP 98.6; O2SAT 99
[2025-04-23 04:40] VITALS: BP 129/69; TEMP 98.6
[2025-04-23 05:35] VITALS: BP 133/70; TEMP 98.5; O2SAT 99
[2025-04-23 06:53] LABS: BASOPHILS # (AUTO) 0.1 K/uL (0.0-0.2); BASOPHILS % (AUTO) 0.7 % (0.0-2.0); EOSINOPHILS # (AUTO) 0.2 K/uL (0.0-0.7); EOSINOPHILS % (AUTO) 2.1 % (0.0-6.0); HEMATOCRIT 25 % (33-45); HEMOGLOBIN 7.9 g/dL (11.5-14.8); LYMPHOCYTES # (AUTO) 1.6 K/uL (0.8-4.8); LYMPHOCYTES % (AUTO) 13.5 % (20.0-44.0); MEAN CORPUSCULAR HEMOGLOBIN 30 PG (26.0-33.0); MEAN CORPUSCULAR HGB CONC 32 g/dl (31.0-36.0); MEAN CORPUSCULAR VOLUME 96 fL (82-100); MONOCYTES # (AUTO) 0.8 K/uL (0.1-1.30); MONOCYTES % (AUTO) 6.5 % (2.0-12.0); NEUTROPHILS % (AUTO) 77.2 % (43.0-81.0); PLATELET COUNT (AUTO) 328 K/uL (150-450); RED BLOOD CELL COUNT(AUTO) 2.58 MIL/uL (4.0-5.2); RED CELL DISTRIBUTION WIDTH 15.8 % (11.5-15.0); WHITE BLOOD COUNT (AUTO) 11.7 K/uL (4.3-11.0)
[2025-04-23 07:45] LABS: CALCIUM, SERUM 8.4 mg/dL (8.5-10.1); CREATININE 0.9 mg/dL (0.6-1.3); POTASSIUM 3.8 mmol/L (3.5-5.1)
[2025-04-23 07:58] LABS: THYROID STIMULATING HORMONE 1.06 uIU/mL (0.358-3.74)
[2025-04-23 08:30] VITALS: BP 134/66; TEMP 98.1; O2SAT 96
[2025-04-23] MEDS ORDERED: DEXTROSE 50%-WATER 50 ML DISP.SYRIN IV PRN (09:00)
[2025-04-23] MEDS: PANTOPRAZOLE 40 MG TABLET.DR PO SCH (09:11)
[2025-04-23] MEDS: BLOOD SUGAR DIAGNOSTIC 1 EACH STRIP IN SCH (12:20)
[2025-04-23 16:00] VITALS: BP 134/63; TEMP 98; O2SAT 96
[2025-04-23 20:00] VITALS: BP 129/58; TEMP 99; O2SAT 95
[2025-04-23] MEDS: INSULIN REGULAR, HUMAN 100 UNIT/ML 3 ML VIAL SQ PRN (22:49)
[2025-04-24] MEDS: MAGNESIUM HYDROXIDE 30 ML UDC PO PRN (04:31)
[2025-04-24 07:15] LABS: BASOPHILS # (AUTO) 0.1 K/uL (0.0-0.2); BASOPHILS % (AUTO) 0.6 % (0.0-2.0); EOSINOPHILS # (AUTO) 0.2 K/uL (0.0-0.7); EOSINOPHILS % (AUTO) 1.6 % (0.0-6.0); HEMATOCRIT 25 % (33-45); LYMPHOCYTES # (AUTO) 1.7 K/uL (0.8-4.8); LYMPHOCYTES % (AUTO) 12.3 % (20.0-44.0); MEAN CORPUSCULAR HEMOGLOBIN 30 PG (26.0-33.0); MEAN CORPUSCULAR HGB CONC 32 g/dl (31.0-36.0); MEAN CORPUSCULAR VOLUME 93 fL (82-100); MONOCYTES # (AUTO) 0.8 K/uL (0.1-1.30); MONOCYTES % (AUTO) 5.9 % (2.0-12.0); NEUTROPHILS # (AUTO) 11.1 K/uL (1.8-8.9); NEUTROPHILS % (AUTO) 79.6 % (43.0-81.0); PLATELET COUNT (AUTO) 337 K/uL (150-450); RED BLOOD CELL COUNT(AUTO) 2.65 MIL/uL (4.0-5.2); RED CELL DISTRIBUTION WIDTH 15.4 % (11.5-15.0)
[2025-04-24 07:30] VITALS: BP 137/66; TEMP 97.7; O2SAT 98
[2025-04-24 07:31] LABS: CALCIUM, SERUM 8.6 mg/dL (8.5-10.1); CREATININE 0.8 mg/dL (0.6-1.3); MAGNESIUM 1.9 mg/dL (1.8-2.4); PHOSPHORUS 3.4 mg/dL (2.5-4.9)
[2025-04-24] MEDS ORDERED: DIVA125C5 PO (08:31)
[2025-04-24] MEDS ORDERED: GLUC1KIT IM (08:31)
[2025-04-24] MEDS ORDERED: MAG30ORA PO (08:31)
[2025-04-24] MEDS ORDERED: RISP0.5T5 PO (08:31)
[2025-04-24] MEDS ORDERED: TEMA7.5C PO (08:31)
[2025-04-24] MEDS ORDERED: MEGE40TA7 PO (08:31)
[2025-04-24] MEDS ORDERED: MAGN400O6 PO (08:31)
[2025-04-24] MEDS ORDERED: LORA-258 PO (08:31)
[2025-04-24] MEDS ORDERED: MAG HYDROX/AL HYDROX/SIMETH 30 ML UDC PO PRN (09:30)
[2025-04-24] MEDS ORDERED: TEMAZEPAM 7.5 MG CAPSULE PO PRN (09:30)
[2025-04-24] MEDS ORDERED: MAGNESIUM HYDROXIDE 30 ML UDC PO PRN (09:30)
[2025-04-24] MEDS ORDERED: ACETAMINOPHEN 325 MG TABLET PO PRN (09:30)
[2025-04-24] MEDS: MEGESTROL ACETATE 40 MG TABLET PO SCH (10:20)
[2025-04-24] MEDS: CALCIUM CARBONATE (1250) 500 MG TABLET PO SCH (10:20)
[2025-04-24] MEDS: AMLODIPINE BESYLATE 10 MG TABLET PO SCH (10:21)
[2025-04-24] MEDS: ASCORBIC ACID 500 MG TABLET PO SCH (10:21)
[2025-04-24] MEDS: LOSARTAN POTASSIUM 50 MG TABLET PO SCH (10:21)
[2025-04-24] MEDS: ACETAMINOPHEN ES 500 MG TABLET PO PRN (10:34)
[2025-04-24] MEDS: risperiDONE 1 MG TABLET PO SCH (13:00)
[2025-04-24 16:00] VITALS: BP 129/62; TEMP 98.4; O2SAT 99
[2025-04-24] MEDS: FERROUS SULFATE (325 MG) 325 MG/TAB TABLET PO SCH (17:00)
[2025-04-24] MEDS: DIVALPROEX SODIUM 125 MG CAP.SPRINK PO SCH (17:00)
[2025-04-24] MEDS: DOCUSATE SODIUM 100 MG CAPSULE PO SCH (17:00)
[2025-04-24 20:00] VITALS: BP 147/70; TEMP 98.7; O2SAT 98
[2025-04-24] MEDS: ATORVASTATIN 40 MG TABLET PO SCH (21:24)
[2025-04-24 21:37] VITALS: BP 147/70; TEMP 98.7; O2SAT 98
[2025-04-25 08:00] VITALS: BP 116/66; TEMP 98.1; O2SAT 98
[2025-04-25] MEDS: LORAZEPAM 0.5 MG TABLET PO PRN (08:37)
[2025-04-25 08:39] VITALS: BP 116/66
[2025-04-25] MEDS: FAMOTIDINE (20 MG) 20 MG TABLET PO SCH (08:50)
[2025-04-25 12:34] LABS: BASOPHILS # (AUTO) 0.1 K/uL (0.0-0.2); BASOPHILS % (AUTO) 0.4 % (0.0-2.0); EOSINOPHILS # (AUTO) 0.1 K/uL (0.0-0.7); EOSINOPHILS % (AUTO) 1.1 % (0.0-6.0); HEMATOCRIT 24 % (33-45); LYMPHOCYTES # (AUTO) 1.6 K/uL (0.8-4.8); LYMPHOCYTES % (AUTO) 11.9 % (20.0-44.0); MEAN CORPUSCULAR HEMOGLOBIN 31 PG (26.0-33.0); MEAN CORPUSCULAR HGB CONC 33 g/dl (31.0-36.0); MEAN CORPUSCULAR VOLUME 94 fL (82-100); MONOCYTES # (AUTO) 0.9 K/uL (0.1-1.30); MONOCYTES % (AUTO) 6.5 % (2.0-12.0); NEUTROPHILS # (AUTO) 10.8 K/uL (1.8-8.9); NEUTROPHILS % (AUTO) 80.1 % (43.0-81.0); PLATELET COUNT (AUTO) 310 K/uL (150-450); RED BLOOD CELL COUNT(AUTO) 2.59 MIL/uL (4.0-5.2); RED CELL DISTRIBUTION WIDTH 15.2 % (11.5-15.0); WHITE BLOOD COUNT (AUTO) 13.5 K/uL (4.3-11.0)
[2025-04-25 12:45] LABS: CALCIUM, SERUM 8.1 mg/dL (8.5-10.1); CREATININE 1.1 mg/dL (0.6-1.3); POTASSIUM 3.8 mmol/L (3.5-5.1)
== END 2025-04-25 13:00 | DRG 811 ==
LOC: ER 21:49 → MED 04-23 03:26
PROVIDERS: ADMIT Nurse Practitioner Family; ATTEND Nurse Practitioner Acute Care
PROC: 30233N1 Transfusion of Nonautologous Red Blood Cells into Peripheral Vein, Percutaneous Approach (ICD-10-PCS; principal; 2025-04-23)
DX: D64.9 Anemia, unspecified (principal); G93.41 Metabolic encephalopathy; E44.0 Moderate protein-calorie malnutrition; Z68.1 Body mass index [BMI] 19.9 or less, adult; F01.54 Vascular dementia, unspecified severity, with anxiety; E11.42 Type 2 diabetes mellitus with diabetic polyneuropathy; E83.51 Hypocalcemia; E88.09 Other disorders of plasma-protein metabolism, not elsewhere classified; E78.5 Hyperlipidemia, unspecified; I10 Essential (primary) hypertension; I25.10 Atherosclerotic heart disease of native coronary artery without angina pectoris; Z79.4 Long term (current) use of insulin; Z86.73 Personal history of transient ischemic attack (TIA), and cerebral infarction without residual deficits; F20.9 Schizophrenia, unspecified; M17.0 Bilateral primary osteoarthritis of knee
CPT/HCPCS: 36415; 80048-TC; 80061-TC; 80076-TC; 82607-TC; 82728-TC; 82962-TC; 83540-TC; 83735-TC; 84100-TC; 84443-TC; 85025-TC; 85730-TC; 86850-TC; 87081-TC; 97110-TC; 97530-TC; G0378; J1815; J7040; P9016

== ENCOUNTER 2025-08-26 13:37 | Inpatient (IN) | payer MEDICARE, OTHER ==
[~2025-08-26] VITALS: Ht 142.2 cm; Wt 40.8 kg
[~2025-08-26 13:37] MED LIST changes: -CRAN300T PO; +DIVA125C5 PO; +GLUC1KIT IM; +LORA-258 PO; +MAG30ORA PO; +MAGN400O6 PO; +MEGE40TA7 PO; +RISP0.5T5 PO; +TEMA7.5C PO
[2025-08-26] MEDS ORDERED: ACETAMINOPHEN 650 MG/SUPP.RECT RC ONE (13:56)
[2025-08-26] MEDS ORDERED: DEXT38GE12 PO (14:04)
[2025-08-26] MEDS: CEFEPIME 1 GM in IV D5W 50 ML IV ONE (14:05)
[2025-08-26] MEDS: ACETAMINOPHEN 650 MG/SUPP.RECT RC ONE (14:06)
[2025-08-26 14:10] LABS: PLATELET COUNT (AUTO) 150 K/uL (150-450); RED BLOOD CELL COUNT(AUTO) 3.19 MIL/uL (4.0-5.2); RED CELL DISTRIBUTION WIDTH 18.7 % (11.5-15.0); WHITE BLOOD COUNT (AUTO) 9.8 K/uL (4.3-11.0)
[2025-08-26 14:11] LABS: CALCIUM, SERUM 7.9 mg/dL (8.5-10.1); CREATININE 1.6 mg/dL (0.6-1.3); SODIUM SERUM 152 mmol/L (136-145); UREA NITROGEN, BLOOD 30 mg/dL (7-18)
[2025-08-26 14:17] LABS: ASPARTATE AMINOTRANSFERASE 50 U/L (15-37); INR 1.35 (0.91-1.10); TOTAL PROTEIN, SERUM 5.6 g/dL (6.4-8.2)
[2025-08-26 14:20] LABS: LACTIC ACID 1.3 mmol/L (0.4-2.0)
[2025-08-26 14:29] LABS: ABG BASE EXCESS -1.7 mmol/L (-2.0-3.0); ABG OXYGEN SATURATION 98.5 % (94.0-98.0); ABG PCO2 27.4 mmHg (32.0-45.0); ABG PH 7.495 (7.350-7.450); ABG PO2 171.1 mmHg (83.0-108.0); ABG TOTAL HEMOGLOBIN 10.6 G/dL (12.0-16.0); FLOW, BLOOD GAS 15.00 L/min (0.00-30.00); FRACTIONATED INSPIRED OXYGEN 100.0 %; SITE, ABG RIGHT RADIAL
[2025-08-26] MEDS: VANCOMYCIN 1 GM in IV D5W 250 ML IV ONE (14:40)
[2025-08-26] MEDS ORDERED: ALBUMIN 25% 100 ML IV ONE (14:44)
[2025-08-26] MEDS: ALBUMIN 25% 12.5 GM/50 ML BOTTLE IV ONE (14:50)
[2025-08-26] MEDS: IV NS 0.9% 1,000 ML BAG IV ONE (15:30)
[2025-08-26] MEDS ORDERED: MAGNESIUM HYDROXIDE 30 ML UDC PO PRN (16:00)
[2025-08-26] MEDS ORDERED: Z GUARD REMEDY 4 OZ OINT TP PRN ×2 (16:00→16:45)
[2025-08-26] MEDS ORDERED: MAG HYDROX/AL HYDROX/SIMETH 30 ML UDC PO PRN (16:00)
[2025-08-26] MEDS ORDERED: ACETAMINOPHEN 325 MG TABLET PO PRN (16:00)
[2025-08-26] MEDS ORDERED: CEFEPIME 1 GM in IV D5W 50 ML IV SCH (16:00)
[2025-08-26] MEDS ORDERED: ONDANSETRON HCL/PF 4 MG/2 ML VIAL IVP PRN (16:00)
[2025-08-26] MEDS ORDERED: DOSING PER PHARMACY-VANCOMYCIN IV XX PRN ×2 (16:00→16:45)
[2025-08-26 16:05] LABS: APPEARANCE,URINE CLEAR (CLEAR); BLOOD, URINE Large Ery/uL (NEGATIVE); LEUKOCYTE ESTERASE ,URINE Small (NEGATIVE); UGLUCOSE Negative (NEGATIVE)
[2025-08-26 16:07] LABS: NITRITE, URINE POSITIVE (NEGATIVE)
[2025-08-26 16:09] LABS: ADD URINE CULTURE YES; CALCIUM OXALATE CRYSTALS,UR Few /HPF (None Seen); SQUAMOUS EPITHELIAL CELL,UR Moderate /HPF (None Seen)
[2025-08-26 16:30] VITALS: BP 111/50; TEMP 97.9; O2SAT 100
[2025-08-26] MEDS: FERROUS SULFATE (325 MG) 325 MG/TAB TABLET PO SCH (17:00)
[2025-08-26] MEDS ORDERED: DIVALPROEX SODIUM 125 MG CAP.SPRINK PO SCH (17:00)
[2025-08-26] MEDS: DIVALPROEX SODIUM 125 MG CAP.SPRINK PO SCH (17:00)
[2025-08-26] MEDS ORDERED: DEXTROSE 50%-WATER 50 ML DISP.SYRIN IV PRN (18:30)
[2025-08-26] MEDS: IV NS 0.9% 1,000 ML IV PRN (18:30)
[2025-08-26 20:00] VITALS: BP 104/57; TEMP 97; O2SAT 100
[2025-08-26] MEDS: ATORVASTATIN 40 MG TABLET PO SCH (22:00)
[2025-08-26] MEDS: INSULIN REGULAR, HUMAN 100 UNIT/ML 3 ML VIAL SQ PRN (22:09)
[2025-08-26] MEDS: BLOOD SUGAR DIAGNOSTIC 1 EACH STRIP IN SCH (22:10)
[2025-08-27] VITALS: BP 101/51; TEMP 97; O2SAT 97
[2025-08-27 04:00] VITALS: BP 104/55; TEMP 96.8; O2SAT 98
[2025-08-27 06:46] LABS: CALCIUM, SERUM 7.7 mg/dL (8.5-10.1); CREATININE 1.3 mg/dL (0.6-1.3); SODIUM SERUM 151.0 mmol/L (136-145); UREA NITROGEN, BLOOD 30.0 mg/dL (7-18)
[2025-08-27 08:00] VITALS: BP 111/50; TEMP 97.5; O2SAT 100
[2025-08-27] MEDS ORDERED: CALCIUM CARBONATE (1250) 500 MG TABLET PO SCH (09:00)
[2025-08-27] MEDS: ASCORBIC ACID 500 MG TABLET PO SCH (09:00)
[2025-08-27] MEDS: AMLODIPINE BESYLATE 10 MG TABLET PO SCH (09:00)
[2025-08-27] MEDS: DOCUSATE SODIUM 100 MG CAPSULE PO SCH (09:00)
[2025-08-27] MEDS: CALCIUM CARBONATE (1250) 500 MG TABLET PO SCH (09:00)
[2025-08-27] MEDS: POTASSIUM CL. PREMIX PERIPHER. 50 ML IV SCH (11:33)
[2025-08-27] MEDS: IV D5/0.45 NACL 1,000 ML IV PRN (11:42)
[2025-08-27 11:58] LABS: PLATELET COUNT (AUTO) 143 K/uL (150-450); RED BLOOD CELL COUNT(AUTO) 3.17 MIL/uL (4.0-5.2); RED CELL DISTRIBUTION WIDTH 17.5 % (11.5-15.0); WHITE BLOOD COUNT (AUTO) 10.6 K/uL (4.3-11.0)
[2025-08-27 12:00] VITALS: BP 109/56; TEMP 97.6; O2SAT 99
[2025-08-27 13:15] LABS: APPEARANCE,URINE TURBID (CLEAR); BLOOD, URINE 3+ Ery/uL (NEGATIVE); LEUKOCYTE ESTERASE ,URINE 1+ (NEGATIVE); NITRITE, URINE NEGATIVE (NEGATIVE); UGLUCOSE NEGATIVE (NEGATIVE)
[2025-08-27 13:30] LABS: CREATININE, URINE 137.8 MG/DL (30.0-125.0); URINE SODIUM, RANDOM 15.0 mmol/l (40-220); URINE TOTAL PROTEIN 262.3 mg/dL (0-11.9)
[2025-08-27 13:43] LABS: ADD URINE CULTURE YES
[2025-08-27] MEDS: CEFEPIME 1 GM in IV D5W 50 ML IV SCH (13:50)
[2025-08-27 14:19] LABS: EOSINOPHIL,URINE None Seen
[2025-08-27] MEDS: VANCOMYCIN 500 MG in IV D5W 100ml IV SCH (15:06)
[2025-08-27 16:00] VITALS: BP 100/51; TEMP 97.9; O2SAT 99
[2025-08-27 20:00] VITALS: BP 105/55; TEMP 97.9; O2SAT 100
[2025-08-28] VITALS: BP 107/58; TEMP 97.5; O2SAT 100
[2025-08-28] MEDS ORDERED: VANCOMYCIN 750 MG in IV D5W 250 ML IV SCH (02:00)
[2025-08-28 04:00] VITALS: BP 96/71; TEMP 97.8; O2SAT 100
[2025-08-28 06:54] LABS: PLATELET COUNT (AUTO) 152 K/uL (150-450); RED BLOOD CELL COUNT(AUTO) 3.67 MIL/uL (4.0-5.2); RED CELL DISTRIBUTION WIDTH 17.6 % (11.5-15.0); WHITE BLOOD COUNT (AUTO) 11.4 K/uL (4.3-11.0)
[2025-08-28 07:06] LABS: ASPARTATE AMINOTRANSFERASE 50.0 U/L (15-37); CALCIUM, SERUM 8.1 mg/dL (8.5-10.1); CREATININE 1.2 mg/dL (0.6-1.3); PHOSPHORUS 2.8 mg/dL (2.5-4.9); SODIUM SERUM 149.0 mmol/L (136-145); TOTAL PROTEIN, SERUM 6.1 g/dL (6.4-8.2); UREA NITROGEN, BLOOD 27.0 mg/dL (7-18)
[2025-08-28 07:07] LABS: CREATINE KINASE, TOTAL 356.0 U/L (26-192)
[2025-08-28 08:00] VITALS: BP 108/66; TEMP 97.3; O2SAT 100
[2025-08-28 12:00] VITALS: BP 106/63; TEMP 97.9; O2SAT 100
[2025-08-28 16:00] VITALS: BP 108/62; TEMP 97.9; O2SAT 96
[2025-08-28 20:00] VITALS: BP 111/62; TEMP 98.4; O2SAT 96
[2025-08-29] VITALS: BP 125/62; TEMP 98.3; O2SAT 98
[2025-08-29 04:00] VITALS: BP 112/56; TEMP 97.7; O2SAT 95
[2025-08-29 08:00] VITALS: BP 105/54; TEMP 97.5; O2SAT 97
[2025-08-29 09:55] LABS: PLATELET COUNT (AUTO) 111 K/uL (150-450); RED BLOOD CELL COUNT(AUTO) 3.43 MIL/uL (4.0-5.2); RED CELL DISTRIBUTION WIDTH 18.2 % (11.5-15.0); WHITE BLOOD COUNT (AUTO) 10.4 K/uL (4.3-11.0)
[2025-08-29 09:57] LABS: CALCIUM, SERUM 8.1 mg/dL (8.5-10.1); CREATININE 1.2 mg/dL (0.6-1.3); SODIUM SERUM 145.0 mmol/L (136-145); UREA NITROGEN, BLOOD 24.0 mg/dL (7-18)
[2025-08-29 12:00] VITALS: BP 113/58; TEMP 97.5; O2SAT 96
[2025-08-29] MEDS: DOCUSATE SODIUM 100 MG CAPSULE PO SCH (13:14)
[2025-08-29 16:00] VITALS: BP 105/69; TEMP 98.2; O2SAT 100
[2025-08-29] MEDS: GLUCERNA SHAKE 237 ML CAN PO SCH (19:57)
[2025-08-29 20:00] VITALS: BP 115/68; TEMP 98.8; O2SAT 99
[2025-08-30 01:11] LABS: PTH, INTACT 34 pg/mL (15-65)
[2025-08-30 04:00] VITALS: BP 121/81; TEMP 97.9; O2SAT 99
[2025-08-30 08:00] VITALS: BP 120/56; TEMP 97.3; O2SAT 98
[2025-08-30 10:01] VITALS: BP 120/56
[2025-08-30 10:07] LABS: PLATELET COUNT (AUTO) 113 K/uL (150-450); RED BLOOD CELL COUNT(AUTO) 3.84 MIL/uL (4.0-5.2); RED CELL DISTRIBUTION WIDTH 16.9 % (11.5-15.0); WHITE BLOOD COUNT (AUTO) 10.2 K/uL (4.3-11.0)
[2025-08-30 10:12] LABS: CALCIUM, SERUM 8.5 mg/dL (8.5-10.1); CREATININE 0.9 mg/dL (0.6-1.3); SODIUM SERUM 143.0 mmol/L (136-145); UREA NITROGEN, BLOOD 20.0 mg/dL (7-18)
== END 2025-08-30 15:56 | DRG 871 ==
LOC: ER 13:38 → TELE1 16:48 → MEDSG1 08-28 11:19
PROVIDERS: ADMIT Nurse Practitioner Acute Care; ATTEND Nurse Practitioner Acute Care
DX: A41.9 Sepsis, unspecified organism (principal); E43 Unspecified severe protein-calorie malnutrition; G93.41 Metabolic encephalopathy; J69.0 Pneumonitis due to inhalation of food and vomit; I21.A1 Myocardial infarction type 2; N17.0 Acute kidney failure with tubular necrosis; N39.0 Urinary tract infection, site not specified; M84.48XA Pathological fracture, other site, initial encounter for fracture; D68.59 Other primary thrombophilia; R64 Cachexia; E87.0 Hyperosmolality and hypernatremia; I12.9 Hypertensive chronic kidney disease with stage 1 through stage 4 chronic kidney disease, or unspecified chronic kidney disease; N18.9 Chronic kidney disease, unspecified; Z20.822 Contact with and (suspected) exposure to COVID-19; E78.5 Hyperlipidemia, unspecified; E86.1 Hypovolemia; I25.10 Atherosclerotic heart disease of native coronary artery without angina pectoris; K59.00 Constipation, unspecified; F20.9 Schizophrenia, unspecified; Z86.73 Personal history of transient ischemic attack (TIA), and cerebral infarction without residual deficits; Z79.899 Other long term (current) drug therapy; E86.9 Volume depletion, unspecified; Z74.01 Bed confinement status; F03.90 Unspecified dementia, unspecified severity, without behavioral disturbance, psychotic disturbance, mood disturbance, and anxiety; E11.22 Type 2 diabetes mellitus with diabetic chronic kidney disease; E88.09 Other disorders of plasma-protein metabolism, not elsewhere classified; E86.0 Dehydration; X58.XXXA Exposure to other specified factors, initial encounter; S80.211A Abrasion, right knee, initial encounter; Y92.9 Unspecified place or not applicable; Y95 Nosocomial condition; Z85.42 Personal history of malignant neoplasm of other parts of uterus; L89.156 Pressure-induced deep tissue damage of sacral region; L98.9 Disorder of the skin and subcutaneous tissue, unspecified; B96.20 Unspecified Escherichia coli [E. coli] as the cause of diseases classified elsewhere
CPT/HCPCS: 36415; 36600; 70450-TC; 71045-TC; 76770-TC; 80048-TC; 80053-TC; 80076-TC; 80202-TC; 81001; 82550-TC; 82553; 82570-TC; 82803-TC; 82962-TC; 83605-TC; 83735-TC; 83970; 84100-TC; 84155; 84165; 84300-TC; 84484-TC; 85025-TC; 85730-TC; 87040-TC; 87081-TC; 87086-TC; 87186-TC; 92526; 92611; A4223; A6213; G0378; J0692; J1815; J3373; J3374; J3480; J3490; J7030; J7040; J7042; J7060; P9047